=== PATIENT | female | born 1990 | race Caucasian/White ===

== ENCOUNTER → 2024-03-03 10:18 | Outpatient (REF) | payer BC, SELFPAY | LOC: RCS 10:18 | PROVIDERS: ATTENDING PHYSICIAN Nurse Practitioner Adult Health | DX: R55 Syncope and collapse (principal) | CPT/HCPCS: 93225; 93226 ==

== ENCOUNTER → 2024-03-15 09:24 | Outpatient (REF) | payer BC, SELFPAY | LOC: RCS 09:24 | PROVIDERS: ATTENDING PHYSICIAN Nurse Practitioner Adult Health | DX: R55 Syncope and collapse (principal) | CPT/HCPCS: 93306 ==

== ENCOUNTER → 2024-11-01 13:31 | Outpatient (REF) | payer BC, SELFPAY | LOC: RAD 13:31 | PROVIDERS: ATTENDING PHYSICIAN Nurse Practitioner Adult Health | DX: S80.12XA Contusion of left lower leg, initial encounter (principal); I83.892 Varicose veins of left lower extremity with other complications | CPT/HCPCS: 93971 ==

== ENCOUNTER → 2024-12-03 11:26 | Outpatient (REF) | payer BC, SELFPAY | LOC: RAD 11:26 | PROVIDERS: ATTENDING PHYSICIAN Nurse Practitioner Adult Health | DX: M79.606 Pain in leg, unspecified (principal) | CPT/HCPCS: 93971 ==